=== PATIENT | female | born 2000 | race Caucasian/White ===

== ENCOUNTER 2021-10-05 12:27 | Emergency (ER) | payer OTHER ==
[~2021-10-05] VITALS: Ht 170.2 cm; Wt 72.6 kg
--- NOTE | 2021-10-05 12:33 | NUR ---
PT SEEN AND EXAMINED BY .
[2021-10-05 12:35] VITALS: BP 113/74
--- NOTE | 2021-10-05 12:39 | NUR ---
URINE SPECIMEN COLLECTED AND SENT TO LAB.
[2021-10-05 12:55] LABS: BILIRUBIN,URINE Negative (NEGATIVE); COLOR,URINE YELLOW (YELLOW); LEUKOCYTE ESTERASE ,URINE Trace (NEGATIVE); NITRITE, URINE Negative (NEGATIVE); PROTEIN,URINE Negative (NEGATIVE); UGLUCOSE Negative (NEGATIVE)
[2021-10-05 13:25] LABS: BACTERIA,URINE Moderate /HPF (None Seen); RBC,URINE 0-2 /HPF (0-2)
[2021-10-05 13:26] LABS: SQUAMOUS EPITHELIAL CELL,UR Many /HPF (None Seen)
[2021-10-05] MEDS ORDERED: PHEN-704 PO (14:00)
[2021-10-05] MEDS ORDERED: NITR100C6 PO (14:00)
--- NOTE | 2021-10-05 14:13 | NUR ---
Patient discharged to home in stable condition. Written and verbal after care instructions given. Patient verbalizes understanding of instruction.
== END 2021-10-05 14:14 | disposition home or self-care (01) ==
LOC: ER 12:32
DX: R30.0 Dysuria (principal)
CPT/HCPCS: 81001; 87086-TC; 87186-TC